=== PATIENT | female | born 1980 ===

== ENCOUNTER 2023-02-19 10:56 | Outpatient (CLI) | payer OTHER | END 2023-02-19 11:02 | disposition home or self-care (01) | LOC: MAMO-SONO 10:56 | PROVIDERS: ATTEND Plastic Surgery Surgery of the Hand | DX: Z01.818 Encounter for other preprocedural examination (principal); N62 Hypertrophy of breast; Z12.31 Encounter for screening mammogram for malignant neoplasm of breast ==